=== PATIENT | male | born 1955 | race Caucasian/White ===

== ENCOUNTER → 2017-03-07 | Day surgery (SDC) | payer OTHER ==
[~2017-03-07] VITALS: Ht 175.3 cm; Wt 85.0 kg
[~2017-03-07] MED LIST: ASPI81TA28 PO; CMD5 PO; DRON400T PO; FENTANYL CITRATE INJ 50 MCG/1 ML 2 ML VIAL ONE; LISI-729 PO; LNX125 PO; LPR25 PO; MIDAZOLAM HCL 1 MG/ML 2ML VIAL ONE; NTRGSL/4 UT; ZCR40 PO
[2017-03-07 12:46] VITALS: BMI 27.0
[2017-03-07 12:59] VITALS: BMI 27.0
--- NOTE | 2017-03-07 13:02 | History & Physical Bridge Note ---
H&P Re-Evaluation Bridge Note: I have examined the patient, reviewed the History & Physical and in the interval since the performance of the History & Physical I have noted the following changes of clinical significance: No changes noted
[2017-03-07 13:03] VITALS: BP 118/84; PULSE 126; TEMP 37.1; O2SAT 98; Ht 175.3 cm; Wt 85.0 kg
--- NOTE | 2017-03-07 13:13 | Pre Sedation Assessment ---
Pre Sedation Assessment General Date of Sedation: Mar 07, 2017. Review Cardiovascular: no JVD, no murmur, normal peripheral pulses, + tachycardia, + irregularly irregular Lungs: chest non-tender, lungs clear, normal breath sounds, no respiratory distress, no accessory muscle use Pre-Sedation Airway Assessment Smoking Status: Never Smoker Short Thick Neck: No Thyro-mental Distance: < or =3 Finger Breadths Oral Cavity: WNL Mallampati Classification: Class I ASA Classification: Class II NPO Status Date of Last Intake of Fluids: Mar 06, 2017 Time of Last Intake of Fluids: 2358 Date of Last Intake of Solids: Mar 06, 2017 Time of Last Intake of Solids: 2358 Notes The planned sedation has been discussed with the patient. Informed Consent was obtained. I have identified the patient, determined the appropriateness of sedation and have assessed the patient immediately prior to the procedure. All medicine(s) and interventions are by my order.
[2017-03-07 13:32] VITALS: BP 138/87; PULSE 122; O2SAT 98
[2017-03-07 13:35] VITALS: BP 125/73; PULSE 95; O2SAT 98
[2017-03-07 13:38] VITALS: O2SAT 98
--- NOTE | 2017-03-07 14:19 | [facility] Post Operative Brief Note ---
Immediate Operative Summary Operative Date Mar 07, 2017. Pre-Operative Diagnosis atrial flutter Post-Operative Diagnosis same Procedure(s) Performed DC cardioversion Surgeon Cj Nurse Clinical Surgeon(s) Leida RAMIREZ Estimated Blood Loss none Findings yazidism of sinus rhythm Specimens none Drains start time: 1332. end time 1339 Anesthesia versed 3 mg, fentanyl 75 mcg: adequate moderate sedation Complication(s) None Disposition CPL
[2017-03-07 14:20] VITALS: BP 128/83; PULSE 62; O2SAT 97
--- NOTE | 2017-03-07 14:21 | Procedure Note ---
Procedure Note Date of Service Mar 07, 2017. Procedure Note Informed consent obtained conscious sedation with a total of Versed 3 mg and Fentanyl 75 mcg 300J of synchronized energy delivered with successful cardioversion to sinus rhythm pt tolerated well no complications Plan: D/c to home will add Multaq 400mg bid stop digoxin cont all other meds coag clinic f/u will be arranged with INR draw on Sunday
--- NOTE | 2017-03-07 14:24 | Discharge Instructions ---
Discharge Instructions Procedure Procedure Date: Mar 07, 2017. Reason for Visit: Atrial Flutter. Discharge Discharge Date: Mar 07, 2017. Discharge Diagnosis: atrial flutter Last Recorded Wt (Kilograms): 85 Medications Stopped Medication(s): digoxin Anesthesia Post Anesthesia Instructions: If you have had General Anesthesia or IV Sedation: * Do not drive today. * Resume driving when surgeon permits. * Do not make important decisions or sign legal documents today. * Call surgeon for: 1. Temperature elevations greater than 101 degrees F. 2. Uncontrollable pain. 3. Excessive bleeding. 4. Persistent nausea and vomiting. 5. Medication intolerance (nausea, vomiting or rash). * For nausea and vomiting use only clear liquids such as: tea, soda, bouillon until nausea subsides, then gradually increase diet as tolerated. * If you have any concerns or questions, call your surgeon's office. If physician is unavailable and it is an emergency, call 911 or go to the nearest emergency room. Instructions Activity Recommendations: driving or machine use limit (after 24 hours) Return to School/Work: with no limitations Recommended Home Diet: no limitations Allergies: Coded Allergies: No Known Allergies (Unverified , 02/07/11) Follow Up Follow-up with: Dr. Kimbrough as scheduled [facility] Recommendations: Call your doctor if: * Temperature above 101 degrees * Pain not relieved by pain medicine ordered * There is increased drainage or redness from any incision * You have any unanswered questions or concerns. Your Doctors Instructions noted above were prepared by provider Justin Corona. Patient Signature Section: Patient Instructions Signature Page Getachew Coffman Patient (or Guardian) Signature/Date: I have read and understand the instructions given to me by my caregivers. Caregiver/RN/Doctor Signature/Date: The above-named patient and/or guardian has received patient instructions on this date. + Original Patient Signature Page (only) stays with chart. Please make copy for patient.
--- NOTE | 2017-03-07 14:25 | Post Sedation Assessment ---
Post Sedation Assessment General Date of Sedation Mar 07, 2017. Vital Signs: Vital Signs Past 12 Hours Date Time Temp Pulse Resp B/P (MAP) Pulse Ox O2 Delivery O2 Flow Rate FiO2 03/07/17 14:20 62 20 128/83 (98) 97 Room Air 03/07/17 14:10 67 20 121/78 (92) 96 Room Air 03/07/17 14:00 69 22 109/78 (88) 93 Room Air 03/07/17 13:50 60 20 118/80 (93) 97 Nasal Cannula 2 03/07/17 13:40 64 26 125/70 (88) 96 Nasal Cannula 2 03/07/17 13:38 98 Nasal Cannula 2 03/07/17 13:35 95 18 125/73 98 Nasal Cannula 2 03/07/17 13:32 122 17 138/87 98 Nasal Cannula 2 03/07/17 13:03 37.1 126 12 118/84 (95) 98 Room Air Post Procedure Recovery Score Activity: (2) Moves 4 extremities * Respiration: (2) Deep breath/cough Circulation: (2) +/-20% PreAnes Value Consciousness: (2) Fully Awake Oxygen Saturation: (2) > 92% On Room Air Post Anesthesia Score: 10 Discharge Sedation Level of Care: Fast Track Phase II Post Sedation Plan On clinical assessment, the patient appears to have tolerated the sedation without complications. Patient is recovering as anticipated. Patient will continue to be monitored by nursing and may be discharged when sedation discharge criteria are met per below protocol. Upon Completions of procedure and additional 15 minutes continue every 5 minute vital signs and the P.A.R. score; then discharge to a Phase I or Fast Track to Phase II per the following guidelines: * Discharge Patient to appropriate Phase II area if PAR is 8 or greater or return to pre- procedure baseline. The post - procedure orders will be as directed. * If PAR score is less than 8 or not return to pre-procedure baseline then patient will follow Phase I monitoring till PAR is reached for Phase II. The Phase I may be done in procedure room or may call to secure a Phase I area. * If naloxone or flumazenil are used for reversal, hold in Phase I for an additional 60 -120 minutes before discharge to Phase II. Please call the Sedation Physician to re-evaluate and complete post-note for discharge to Phase II area. Do NOT discharge from procedure sedation or Phase 1 until post- sedation evaluation note is complete by procedure /sedation MD Sedation Discharge Instructions to be given to the patient at discharge to home.
== END | disposition home or self-care (01) ==
LOC: C.CPL 12:13
PROVIDERS: ATTEND Internal Medicine Cardiovascular Disease
DX: I48.4 Atypical atrial flutter (principal); I25.10 Atherosclerotic heart disease of native coronary artery without angina pectoris; E78.5 Hyperlipidemia, unspecified; I48.91 Unspecified atrial fibrillation; M17.10 Unilateral primary osteoarthritis, unspecified knee; Z80.42 Family history of malignant neoplasm of prostate; Z79.01 Long term (current) use of anticoagulants; Z86.718 Personal history of other venous thrombosis and embolism; Z82.3 Family history of stroke; Z82.49 Family history of ischemic heart disease and other diseases of the circulatory system; Z95.5 Presence of coronary angioplasty implant and graft; Z79.82 Long term (current) use of aspirin

== ENCOUNTER 2017-10-29 07:56 | Inpatient (IN) | payer OTHER ==
[~2017-10-29] VITALS: Ht 175.3 cm; Wt 81.8 kg
[~2017-10-29 07:56] MED LIST changes: -DRON400T PO; -FENTANYL CITRATE INJ 50 MCG/1 ML 2 ML VIAL ONE; -LISI-729 PO; +LISI5TAB PO; -MIDAZOLAM HCL 1 MG/ML 2ML VIAL ONE; +SIMV10TA5 PO; -ZCR40 PO
--- NOTE | 2017-10-29 08:53 | History and Physical ---
History & Physical Date & Time of Service: Oct 29, 2017 at 08:28 Chief Complaint: recurrent symptomatic atrial fibrillation Primary Care Physician: Rashawn Snell M.D. History of Present Illness Getachew Coffman is a 62 year old year old male recently followed for recurrent symptomatic atrial fibrillation. He had most recently been seen in outpatient follow up by the undersigned on 09/25/17. He was referred for repeat direct current cardioversion at that time which was performed on 09/27/[address] Villarreal and he was discharged in sinus rhythm at that time. He however has reverted to AF in the interim. Most recent EKG tracing was on 10/16/17 revealing AF at 93 bpm. He notes his heart rate can vary from 80-150 bpm with minimal activity with associated sensation of racing heartbeat and easy fatigability. He had followed with Dr Pizarro of [facility] who had recently recommended another EP opinion. The patient had therefore seen Dr Ambrosio on 10/16/17 and repeat ablation with initiation of the anti rhythmic medication Tikosyn (dofetilide) with tentatively planned with direct admission to [facility] scheduled for 11/20/2017. In the meantime however the patient has felt poorly, and has been determined that the best next step would be to initiate dofetilide treatment now in advance of the repeat ablation. The patient 's INR levels have been within the therapeutic range recently. On 08/20/2017 the INR was 2.16, on 09/15/2017 the INR was 2.8, on 09/25/2017 the INR was 2.99, and on 10/13/2017 the INR was 2.79. Past Medical/Surgical History Past Medical History: 01/2012-initially presented with abdominal pain due to embolic infarcts, was diagnosed with a left atrial appendage thrombus and atrial fibrillation during that admission Recurrent atrial fibrillation prompting pulmonary vein isolation, 03/2012-cardioversion for atrial flutter 04/2015-caval tricuspid isthmus ablation for atrial flutter 10/2015-pulmonary vein isolation for recurrent atrial fibrillation 03/2013-cardiac catheterization for symptoms of exertional angina, abnormal stress test, with findings of coronary heart disease, and underwent PCI, drug- eluting stent to the mid LAD Multiple cardioversions for atrial fibrillation and atrial flutter Dyslipidemia Past Surgical History: (1) Status post ablation of atrial fibrillation (2) Status post coronary artery stent placement (3) Status post inguinal hernia repair Family History Coronary artery disease MOTHER Prostate cancer FATHER Stroke MOTHER Mother had history of heart disease, details unknown, as well as cerebral vascular disease and of a stroke in her late 60s. Father with history of heart disease and due to prostate cancer in his late 60s. 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 Smoking Status: Former Smoker Drug Use: none Marital Status: single Housing status: lives alone Occupational Status: employed Multi-Drug Resistant Organisms History of MDRO: No Allergies Coded Allergies: No Known Allergies (Unverified , 02/07/11) Home Medications Scheduled Aspirin (Aspirin Ec), 81 MG PO DAILY Digoxin (Digoxin), 250 MCG PO DAILY Lisinopril (Prinivil), 2.5 TAB PO DAILY Metoprolol Tartrate (Lopressor), 25 MG PO BID Nitroglycerin (Nitrostat), 0.4 MG UT PRN Simvastatin (Zocor), 1 TAB PO HS Warfarin Sod (Coumadin *), 5 MG PO DAILY Physical Exam Vital Signs Vital signs at most recent cardiology/electrophysiology appointment within the [facility] system dated 10/16/2017: Blood pressure 130/88, heart rate 93, weight 183 pounds, body mass index 27.11 kilograms/meter squared Constitutional: normal: well nourished, well developed, no acute distress HEENT: normal: normocephalic, atraumatic; no masses, tenderness, or adenopathy Neck: supple, normal range of motion, JVP normal CV: S1 and S2 normal, irregularly irregular pulse, no systolic murmur Chest: normal respiratory effort, lungs clear to auscultation and percussion, chest wall normal Abdomen: normal: soft, bowel sounds normal, no masses, tenderness or organomegaly Extremities: no clubbing, cyanosis, or edema, otherwise grossly normal, warm, and dry Skin: warm, dry, intact: Neuro: alert, oriented to person, place, and time, normal mental status exam, gait normal, reflexes normal and symmetric, sensory normal Diagnostics Laboratory Results Pending Impression Assessment and Plan Impression: 62-year-old male 1. Recurrent symptomatic atrial fibrillation, for which patient has undergone multiple direct current cardioversions in the past as well as to pulmonary vein isolation procedures, and a right-sided atrial flutter ablation 2. Coronary heart disease status post PCI, bare metal stent to the LAD 2013 as outlined above Plan: Patient has had refractory atrial arrhythmias despite multiple trials of different medication regimens. In the past he has been on anti rhythmic medication including sotalol. More recently this calendar year he had been transition to Multaq and he actually felt worse on the Multaq and subjectively his atrial fibrillation burden actually increased. Recommend admission for initiation of dofetilide. Patient is to be admitted to the telemetry unit on the cardiology service. His Coumadin will be continued. He is to undergo laboratory assessment to confirm that his INR was within the therapeutic range and that his kidney function, electrolytes, and hemoglobin are stable. Will then proceed with initiation of dofetilide, likely with a starting dose of 500 milligrams q.12 hours and dose will be adjusted as tolerated with close attention to his corrected QT interval. Dr. Villarreal is to reassess the patient upon arrival to the telemetry unit.
[2017-10-29 09:34] VITALS: BP 130/90; PULSE 77; TEMP 36.5; Ht 175.3 cm; Wt 81.8 kg
[2017-10-29 09:36] VITALS: O2SAT 98
--- NOTE | 2017-10-29 10:01 | [facility] Post Operative Brief Note ---
Preliminary Procedure Note Procedure Date Oct 29, 2017. Pre-Procedure Diagnosis Non STEMI AUC Score 8 Post-Procedure Diagnosis Severe CAD (Three-vessel) Procedure(s) Performed Coronary Angiography, Left Heart Cath, LV Angiography Jar Filler Dr. Familia Villarreal Equine Science Instructor(s) Lamar Martines Estimated Blood Loss <15 cc Medication(s) Fentanyl (12.5 mcg IV), Heparin (5000 units IV), Nicardipine (250 mcg intra- arterial after arterial sheath placed), Versed (1 mg IV), Lidocaine 1% (Local infiltration) Preliminary Findings Right dominant coronary anatomy Severe three-vessel coronary artery disease with ostial right coronary artery occlusion and collateral fill distally, 80% ostial narrowing left circumflex, left anterior descending ulcerated 60% proximal lesion, 70% mid vessel with large caliber distal vessel Left ventricle minimal hypokinesis inferior wall EF 55%, no mitral insufficiency Left ventricular end-diastolic pressure 14 Recommendations CABG Specimens None Fluids (cc crystalloids) 85 Anesthesia Start 911 stop 950 Procedural Complication(s) None Disposition PCU
[2017-10-29] MEDS ORDERED: SODIUM CHLORIDE 0.9% 1000ML 1,000 ML IV SCH (10:02)
[2017-10-29] MEDS ORDERED: SODIUM CHLORIDE 0.9% 1000ML 250 ML IV PRN (10:02)
[2017-10-29] MEDS ORDERED: NITROGLYCERIN 0.4 MG SL PER TAB CHARGE SL PRN (10:15)
[2017-10-29] MEDS ORDERED: ACETAMINOPHEN 325 MG TAB PO PRN ×2 (10:15→11:15)
[2017-10-29] MEDS ORDERED: ATROPINE SULFATE 0.1 MG/ML 5ML SYR IV PRN (10:15)
[2017-10-29] MEDS ORDERED: HEPARIN IV LOW DOSE NO BOLUS STA (10:52)
[2017-10-29] MEDS ORDERED: NITROGLYCERIN 0.4 MG SL PER TAB CHARGE UT SCH (11:15)
[2017-10-29 11:18] LABS: BASO % 0.3 %; BASO ABS # 0.02 K/uL (0-0.2); EOS % 2.2 %; EOS ABS # 0.17 K/uL (0-0.5); HEMATOCRIT 39.7 % (42-52); HEMOGLOBIN 13.5 g/dL (14.0-18.0); IG# 0.02 K/uL (0.00-0.02); LYMPH % 24.6 %; LYMPH ABS # 1.86 K/uL (1.2-3.4); MEAN CELL VOLUME 88.2 fL (80-100); MONO % 5.9 %; MONO ABS # 0.45 K/uL (0.11-0.59); NEUT % 66.7 %; NEUT ABS # 5.05 K/uL (1.4-6.5); PLATELET COUNT 163 K/uL (130-400); RED CELL DISTRIBUTION WIDTH CV 13.4 % (11.5-14.5); WHITE BLOOD COUNT 7.57 K/uL (4.8-10.8)
[2017-10-29 11:26] LABS: PTT PATIENT 34.3 SECONDS (21.0-31.0)
[2017-10-29] MEDS ORDERED: DOFETILIDE 125 MCG CAP PO ONE (11:30)
[2017-10-29] MEDS ORDERED: HEPARIN 25,000 UNIT/500ML D5W 500 ML IV SCH (12:00)
[2017-10-29 12:14] VITALS: BP 136/92; PULSE 77; TEMP 36.4; O2SAT 98
[2017-10-29 15:03] VITALS: BP 136/88; PULSE 72; TEMP 36.6; O2SAT 97
[2017-10-29] MEDS: WARFARIN SOD 5 MG TAB PO SCH ×2 (15:08→15:14)
[2017-10-29] MEDS ORDERED: NURSING VERBAL MED ORDER ONE (15:15)
[2017-10-29] MEDS ORDERED: DOFETILIDE 125 MCG CAP PO SCH (17:00)
[2017-10-29 19:20] VITALS: BP 157/100; PULSE 56; TEMP 37; O2SAT 97
[2017-10-29] MEDS: DOFETILIDE 125 MCG CAP PO SCH (20:56)
[2017-10-29] MEDS: SIMVASTATIN 10 MG TAB PO SCH (20:56)
[2017-10-29 23:51] VITALS: BP 122/82; PULSE 56; TEMP 36.4; O2SAT 97
[2017-10-30] VITALS (7 sets, daily range): BP systolic 116–139; BP diastolic 73–89; PULSE 53–58; TEMP 36.4–36.8; O2SAT 96–100
[2017-10-30 07:47] LABS: INR 2.4 (0.9-1.1)
[2017-10-30] MEDS: ASPIRIN 81 MG ECTAB PO SCH (08:29)
[2017-10-30] MEDS: DOFETILIDE 125 MCG CAP PO SCH ×2 (08:29→20:44)
[2017-10-30] MEDS ORDERED: LISINOPRIL 5 MG TAB PO SCH (09:00)
--- NOTE | 2017-10-30 10:40 | PROGRESS NOTE ---
DATE: 10/30/2017 Patient seen and examined. Chart, medications, telemetry reviewed. SUBJECTIVE: Patient feels well this morning. He did spontaneously convert to sinus rhythm yesterday afternoon. QT reveals no QT prolongation on EKGs. He is tolerating Tikosyn so far, did receive an increased dose of lisinopril due to bathroom tiling professional changes and medical record which has been remedied to have lower dose lisinopril at 5 mg per day, metoprolol remains on hold. PHYSICAL EXAMINATION: VITAL SIGNS: Heart rate is 56, blood pressure is 139/89. NECK: Thin. There is no jugular venous distention. LUNGS: Clear to auscultation. CARDIOVASCULAR: Regular. There is no S3 gallop. ABDOMEN: Soft, nontender. There is no palpable hepatosplenomegaly, no hepatojugular reflux. EXTREMITIES: Without cyanosis or clubbing. There is no peripheral edema. There are intact distal pulses. LABORATORY DATA: INR is 2.4. EKG this morning prior to Tikosyn dosing demonstrated sinus rhythm with a rate of 62 with a QT corrected of 440. IMPRESSION: A 62-year-old male with history of paroxysmal atrial arrhythmias, atrial fibrillation flutter, currently being admitted for antiarrhythmic loading with Tikosyn with spontaneous conversion to sinus rhythm with medical therapies. PLAN: We will continue to hold metoprolol for time being, likely reinstitute a very low dose in a.m. Lisinopril will be increased to 5 mg per day for blood pressure control. As noted, patient received a higher dose earlier today and will be followed in hospital. Serial EKGs reveals no QT prolongation. Discussed with patient to remain for 6 doses. He is agreeable to plan.
[2017-10-30] MEDS: WARFARIN SOD 5 MG TAB PO SCH (15:51)
[2017-10-30] MEDS ORDERED: NURSING VERBAL MED ORDER ONE (16:00)
[2017-10-30] MEDS: WARFARIN SOD 2.5 MG TAB PO SCH (17:12)
[2017-10-30] MEDS: SIMVASTATIN 10 MG TAB PO SCH (20:44)
[2017-10-31] VITALS (7 sets, daily range): BP systolic 121–135; BP diastolic 76–84; PULSE 51–61; TEMP 36.4–36.9; O2SAT 93–98
[2017-10-31 07:18] LABS: INR 2.2 (0.9-1.1)
[2017-10-31] MEDS: DOFETILIDE 125 MCG CAP PO SCH ×2 (07:42→16:15)
[2017-10-31] MEDS: ASPIRIN 81 MG ECTAB PO SCH (07:43)
[2017-10-31] MEDS: LISINOPRIL 5 MG TAB PO SCH (07:43)
[2017-10-31 07:48] LABS: CALCIUM 8.7 mg/dl (8.5-10.1); CREATININE 1.07 mg/dl (0.60-1.40)
[2017-10-31] MEDS ORDERED: METOPROLOL TARTRATE 25 MG TAB PO ONE (13:30)
[2017-10-31] MEDS ORDERED: LISI5TAB PO (14:21)
[2017-10-31] MEDS ORDERED: LPR25 PO (14:21)
--- NOTE | 2017-10-31 14:25 | Discharge Instructions ---
Discharge Instructions Date of Service Oct 31, 2017. Admission Reason for Admission: A-Fib, Tikosyn Administration Discharge Discharge Diagnosis / Problem: Successful initiation of Tikosyn Discharge Goals Goal(s): Specific goals (Reduce atrial fibrillation/flutter) Activity Recommendations Activity Limitations: resume your previous activity Lifting Limitations: none Exercise/Sports Limitations: gradually increase as tolerated May Resume Sexual Activity: when tolerated Shower/Bathe: no limitations Driving or Machine Use: no limitations . Instructions / Follow-Up Instructions / Follow-Up Follow-up as scheduled Current Hospital Diet Patient's current hospital diet: AHA Diet (Heart Healthy) Discharge Diet Recommended Diet: AHA Diet (Heart Healthy) Procedures Procedures Performed: None Pending Studies Studies pending at discharge: no Medical Emergencies . Who to Call and When: Medical Emergencies: If at any time you feel your situation is an emergency, please call 911 immediately. . Non-Emergent Contact Non-Emergency issues call your: Primary Care Provider . Past History Medical & Surgical History: (1) Atrial flutter (2) Coronary artery disease (3) History of atrial fibrillation . "Provider Documentation" section prepared by Familia Villarreal. .
[2017-10-31] MEDS ORDERED: WARFARIN SOD 5 MG TAB PO SCH (16:00)
[2017-10-31] MEDS: SIMVASTATIN 10 MG TAB PO SCH (20:30)
--- NOTE | 2017-10-31 23:11 | DISCHARGE SUMMARY ---
DISCHARGE DIAGNOSES: 1. Successful initiation of antiarrhythmic therapy with Tikosyn. 2. Paroxysmal atrial fibrillation. 3. Intermittent ventricular ectopy. 4. Successful spontaneous conversion to sinus rhythm. 5. Atherosclerotic coronary artery disease. 6. Hypertension. OPERATIONS AND PROCEDURES: None. DISPOSITION: Discharged to home. CONDITION: Stable. ALLERGIES: None. MEDICATIONS ON DISCHARGE: Warfarin unchanged from prior dosing 5 mg Sunday, Sunday, Sunday and 2.5 mg Sunday, Sunday, and ; aspirin 81 mg p.o. daily; simvastatin 10 mg p.o. daily; lisinopril increased dose 5 mg p.o. daily; metoprolol decreased dose 12.5 mg once per day. New medication dofetilide 250 mcg twice per day; nitroglycerin 0.4 mg sublingually p.r.n. chest pain. SPECIAL INSTRUCTIONS: Call or go to ER if sudden dizziness, lightheadedness, tachypalpitations occur. Follow up with [facility] EP as scheduled in November 20, 2017. Call Dr. Kimbrough, primary care physician, with any other questions or concerns. HISTORY OF PRESENT ILLNESS: The patient is a complex 62-year-old male with history of recurrent symptomatic atrial fibrillation and atrial flutter with past electrophysiologic interventions and anticipated repeat EP study ablation in November at [facility] on 11/20. He has, however, in the interim lapsed back into atrial flutter and is referred now for inpatient management with initiation of antiarrhythmic therapy. For further details, refer to admission H and P. HOSPITAL COURSE: The patient was admitted to the telemetry unit and placed on monitor and maintained on monitor throughout the hospital stay. Initial EKG demonstrated typical atrial flutter with 4:1 AV conduction, rate 76. The patient was begun on dofetilide with good tolerance of the drug initially as well as spontaneous conversion to sinus rhythm. After 6 doses of dofetilide, patient developed QT prolongation 540, possibly in association with short dosing interval (8 hours). Dose was reduced to 250mcg following day after QT noted to have returned to normal. Medications on admission were also adjusted. Specifically, digoxin was discontinued on admission, metoprolol originally held. Blood pressures did climb slightly higher with reduction in medical therapies and lisinopril has been increased to 5 mg once daily, metoprolol was resumed at reduced dose at 12.5 mg daily with resting sinus bradycardia on all EKGs. There were no significant arrhythmias other than atrial flutter on initial presentation on monitor. Laboratory studies demonstrated an INR of 2.2 today on admission and laboratory studies sodium 139, potassium 4.0, chloride 106, bicarb 28, BUN 18, creatinine 1.07 on discharge. All details were discussed with patient. Prescriptions arranged for pickup. He will contact with any questions or concerns. REDDY
[2017-11-01 04:03] VITALS: BP 123/75; PULSE 52; TEMP 36.5; O2SAT 96
[2017-11-01 07:38] VITALS: BP 132/86; PULSE 60; TEMP 36.9; O2SAT 95
[2017-11-01 07:40] LABS: INR 2.3 (0.9-1.1)
[2017-11-01] MEDS: LISINOPRIL 5 MG TAB PO SCH (08:42)
[2017-11-01] MEDS: ASPIRIN 81 MG ECTAB PO SCH (08:42)
[2017-11-01] MEDS: METOPROLOL TARTRATE 25 MG TAB PO SCH (08:42)
[2017-11-01] MEDS ORDERED: NON-FORMULARY MEDICATION SCH (09:15)
[2017-11-01] MEDS: DOFETILIDE 125 MCG CAP PO SCH ×2 (10:14→20:35)
[2017-11-01 11:42] VITALS: BP 128/87; PULSE 56; TEMP 36.4; O2SAT 97
[2017-11-01] MEDS ORDERED: DOFE125C PO (12:14)
[2017-11-01] MEDS ORDERED: LISI-730 PO (12:14)
[2017-11-01] MEDS ORDERED: LPR25 PO (12:14)
--- NOTE | 2017-11-01 13:09 | PROGRESS NOTE ---
DATE: 11/01/2017 Patient is seen and examined. Chart, medications, telemetry reviewed. SUBJECTIVE: Last evening, EKG repeat after evening dose of Tikosyn at slightly accelerated timing demonstrated significant QT prolongation. He had no symptoms. He had no arrhythmias. He was kept overnight. EKG this morning demonstrates return to normal QT interval. There had been no arrhythmias overnight. He notes no cardiac complaints. Blood pressure is under control. RECOMMENDATIONS: We will resume Tikosyn at lower dosing at 250 mcg, and acute QT prolongation may be due to dosing versus accelerated protocol of shorter interval than 12 hours yesterday. Repeat EKG after dosing. Likely keep an additional 24 hours. Hopefully, the patient tolerating 250 mcg dosing. Patient is agreeable to plan. No signs or symptoms of complaints otherwise.
[2017-11-01 15:02] VITALS: BP 125/80; PULSE 67; TEMP 36.9; O2SAT 97
[2017-11-01] MEDS: WARFARIN SOD 2.5 MG TAB PO SCH (17:27)
[2017-11-01 18:47] VITALS: BP 135/89; PULSE 62; TEMP 36; O2SAT 96
[2017-11-01] MEDS: SIMVASTATIN 10 MG TAB PO SCH (20:35)
[2017-11-01 23:08] VITALS: BP 144/88; PULSE 56; TEMP 36.6; O2SAT 97
[2017-11-02 03:21] VITALS: BP 121/78; PULSE 55; TEMP 36.6; O2SAT 96
[2017-11-02 06:39] VITALS: BP 124/83; PULSE 53; TEMP 36.6; O2SAT 97
[2017-11-02 08:00] VITALS: PULSE 65
[2017-11-02] MEDS: ASPIRIN 81 MG ECTAB PO SCH (08:01)
[2017-11-02] MEDS: DOFETILIDE 125 MCG CAP PO SCH (08:01)
[2017-11-02] MEDS: LISINOPRIL 5 MG TAB PO SCH (08:01)
[2017-11-02] MEDS: METOPROLOL TARTRATE 25 MG TAB PO SCH (08:01)
--- NOTE | 2017-11-02 09:51 | Cardiology Follow-Up ---
Subjective Subjective Date of Service: Nov 02, 2017. Pt evaluation today including: conversation w/ patient, physical exam, chart review, lab review, review of studies, review of inpatient medication list Additional Details: Pt seen and examined, without complaint. Denies cp, sob, palpitations, lightheadedness or dizziness. Tele reviewed: sinus rhythm/sinus rachel. No arrhythmias. Problem List Medical Problems: (1) Atrial flutter with rapid ventricular response Status: Acute Review of Systems Respiratory: No see HPI, No cough, No sputum, No wheezing, No shortness of breath, No dyspnea on exertion, No dyspnea at rest, No hemoptysis, No problem reported Cardiac: No see HPI, No chest pain, No orthopnea, No PND, No edema, No claudication, No palpitations, No problem reported Objective Vital Signs Last Vital Signs Documentation Date Time Temp Pulse Resp B/P (MAP) Pulse Ox O2 Delivery O2 Flow Rate FiO2 11/02/17 08:00 65 11/02/17 06:39 36.6 18 124/83 (97) 97 Room Air Physical Exam: General Appearance: WD/WN, no apparent distress Eyes: bilateral eyes normal inspection, bilateral eyes PERRL, bilateral eyes EOMI ENT: normal ENT inspection, hearing grossly normal, pharynx normal Neck: supple, no adenopathy, thyroid normal, no JVD, no carotid bruits, trachea midline Respiratory/Chest: chest non-tender, lungs clear, normal breath sounds, no respiratory distress, no accessory muscle use Cardiovascular: regular rate, rhythm, no edema Abdomen: normal bowel sounds, non tender, soft, no organomegaly, no pulsatile mass Extremities: normal range of motion, non-tender, normal inspection, no pedal edema, no calf tenderness Neurologic/Psychiatric: mathematics academic chair II-XII nml as tested, no motor/sensory deficits, alert, normal mood/affect, oriented x 3 Skin: normal color, warm/dry, no rash Lymphatic: no adenopathy Assessment and Plan 1. PAF tolerated Tikosyn load well no arrhythmias but some transient QT prolongation now resolved with lower dose QTc of 435ms today, will discharge meds will be called into [facility]'s pharmacy as per patient preference for scheduled PVI on 11/20
[2017-11-02 10:19] VITALS: BP 124/83; PULSE 65; TEMP 36.6; O2SAT 97
== END 2017-11-02 10:30 | disposition home or self-care (01) | DRG 310 ==
LOC: C.2T 09:07
PROVIDERS: ADMIT Specialist; ATTEND Internal Medicine Cardiovascular Disease
DX: I48.0 Paroxysmal atrial fibrillation (principal); I48.92 Unspecified atrial flutter; I10 Essential (primary) hypertension; I25.10 Atherosclerotic heart disease of native coronary artery without angina pectoris; Z79.01 Long term (current) use of anticoagulants; Z79.82 Long term (current) use of aspirin; Z79.899 Other long term (current) drug therapy; Z95.5 Presence of coronary angioplasty implant and graft